=== PATIENT | female | born 1950 | race Caucasian/White ===

== ENCOUNTER 2017-08-11 17:08 | Emergency (ER) | payer MEDICARE, OTHER ==
[2017-08-11] MEDS ORDERED: SODIUM CHLORIDE 0.9% 1,000 ML IV ONE (17:27)
[2017-08-11] MEDS ORDERED: ONDANSETRON 4 MG/2 ML VIAL IVP STA (17:27)
--- NOTE | 2017-08-11 17:29 | ED Physician Documentation ---
PD HPI ABD PAIN - Stated complaint Stated Complaint: VOMITING - Chief complaint Chief Complaint: Abd Pain - History obtained from History obtained from: Patient - History of Present Illness Timing - onset: Other (67-year-old woman with remote gastric bypass, Derek-en-Y presents with 2 days of vomiting without significant pain. She has had decreased bowel movements and is not sure if she has had flatus or not but thinks she has. Her significant other recently had a vomiting type illness. There is no associated fever pain.) Review of Systems Constitutional: denies: Fever, Chills Nose: denies: Rhinorrhea / runny nose, Congestion Cardiac: denies: Chest pain / pressure, Palpitations Respiratory: denies: Dyspnea, Cough PD PAST MEDICAL HISTORY - Past Medical History Cardiovascular: None Respiratory: None Endocrine/Autoimmune: Type 2 diabetes GI: Cholelithiasis : None HEENT: None Psych: Depression, Anxiety Musculoskeletal: Osteoarthritis Derm: None - Past Surgical History Past Surgical History: Yes General: Cholecystectomy Ortho: Knee replacement - Present Medications Home Medications: Ambulatory Orders Medication Instructions Recorded Confirmed Ondansetron Odt [Zofran] 4 mg TL Q6H PRN 11/25/12 11/25/12 Sertraline [Zoloft] 100 mg PO BID 11/25/12 11/25/12 Bupropion HCl [Bupropion HCl Sr] 100 mg PO 08/11/17 Lionel Cit/Mag/D3/Zn/Resident Surgeon/Bennie/Bor 1 each PO 08/11/17 [Citracal-Vit D + Magnesium Tab] Citalopram [CeleXA] 10 mg PO ONCE 08/11/17 08/11/17 Metoclopramide [Reglan] 10 mg PO Q6H PRN #20 tablet 08/11/17 - Allergies Allergies/Adverse Reactions: Allergies Allergy/AdvReac Type Severity Reaction Status Date / Time Sulfa (Sulfonamide Allergy Unknown unknown Verified 11/25/12 18:22 Antibiotics) Penicillins AdvReac Severe Respiratory Verified 08/11/17 17:16 - Social History Does the pt smoke?: No Smoking Status: Never smoker Does the pt drink ETOH?: No Does the pt have substance abuse?: No - Family History Family history: reports: Non contributory - Immunizations Immunizations are current?: Yes PD ED PE NORMAL - Vitals Vital signs reviewed: Yes - General General: Alert and oriented X 3, No acute distress - HEENT HEENT: PERRL, EOMI - Neck Neck: Supple, no meningeal sign, No bony TTP - Cardiac Cardiac: RRR, No murmur - Respiratory Respiratory: No respiratory distress, Clear bilaterally - Abdomen Abdomen: Normal bowel sounds, Soft, Non tender - Neuro Neuro: Alert and oriented X 3, Normal speech - Psych Psych: Normal mood, Normal affect Results - Vitals Vitals: Vital Signs - 24 hr 08/11/17 08/11/17 08/11/17 17:13 18:53 19:27 Temperature 36.9 C Heart Rate 96 95 Respiratory 18 16 16 Rate Blood Pressure 174/109 H 169/88 H O2 Saturation 98 100 08/11/17 20:32 Temperature 36.9 C Heart Rate 101 H Respiratory 15 Rate Blood Pressure 146/91 H O2 Saturation 97 Oxygen O2 Source Room air - EKG (time done) 1743 Rate: Rate (enter#) (93) Rhythm: NSR [place]: Normal Intervals: Normal MA, Prolonged QT QRS: LVH Ischemia: Normal ST segments Computer interpretation: Agree with computer - Labs Labs: Laboratory Tests 08/11/17 08/11/17 08/11/17 18:43 18:43 18:43 WBC 8.5 RBC 4.35 Hgb 13.2 Hct 39.8 MCV 91.5 MCH 30.3 MCHC 33.1 RDW 13.5 Plt Count 349 MPV 7.2 L Neut # 6.7 H Lymph # 1.2 L Bonner # 0.6 Eos # 0.0 Baso # 0.1 Absolute Nucleated RBC 0.00 Nucleated RBC % 0.0 Sodium 132 L Potassium 3.0 L Chloride 93 L Carbon Dioxide 24 Anion Gap 15.0 H BUN 10 Creatinine 0.8 Estimated GFR (MDRD) 72 L Glucose 311 H Calcium 9.5 Total Bilirubin 1.2 H AST 22 ALT 12 Alkaline Phosphatase 172 H Troponin I < 0.04 Total Protein 8.3 H Albumin 4.3 Globulin 4.0 Albumin/Globulin Ratio 1.1 Lipase 12 L - Rads (name of study) CT A/P Radiology: EMP read contemporaneously (No obstruction, some degenerative changes with an ill-defined soft tissue component at L5-S1, fat-containing umbilical hernia.) PD MEDICAL DECISION MAKING - ED course ED course: 67-year-old woman presents with vomiting alone, but no significant abdominal or back pain. She is a history of a Derek-en-Y gastric bypass and questionable flatus by history so obstruction workup was obtained with contrast-enhanced CT and there is no evidence of this. She does have an abnormality at L5-S1 and follow-up with MRI was advised. She had excellent relief here with Reglan. Departure - Departure Disposition: 01 Home, Self Care Clinical Impression: H/O gastric bypass Vomiting Qualifiers: Vomiting type: unspecified Vomiting Intractability: non-intractable Nausea presence: with nausea Qualified Code(s): R11.2 - Nausea with vomiting, unspecified Condition: Good Record reviewed to determine appropriate education?: Yes Instructions: ED Nausea Vomiting Prescriptions: Metoclopramide [Reglan] 10 mg PO Q6H PRN #20 tablet PRN Reason: Nausea / Vomiting Comments: Return if worse or if new symptoms develop. Follow-up with your physician regardless, as discussed there was an abnormality in your back at L5-S1, Talk with your doctor about follow-up MRI there. Your blood pressure was elevated today on check into the emergency department. This does not mean that you have hypertension, it is a common phenomenon to come to the emergency department and have elevated blood pressure. I recommend that you see your primary care physician within the week to have it rechecked when you are feeling better.
[2017-08-11] MEDS ORDERED: IOPAMIDOL-300 100 ML VIAL ONE (17:43)
[2017-08-11] MEDS ORDERED: IOPAMIDOL-300 50 ML VIAL ONE (17:43)
[2017-08-11] MEDS ORDERED: METOCLOPRAMIDE 10 MG/2 ML VIAL IVP STA ×2 (17:47→21:19)
[2017-08-11] MEDS ORDERED: IOPAMIDOL-300 50 ML VIAL PO ONE (18:19)
[2017-08-11] MEDS ORDERED: IOPAMIDOL-300 100 ML VIAL IVP ONE (18:19)
[2017-08-11 18:48] LABS: BASOPHILS # (AUTO) 0.1 10^3/uL (0.0-0.1); BASOPHILS % (AUTO) 0.6 %; HGB - HEMOGLOBIN 13.2 g/dL (12.0-16.0); LYMPHOCYTES # (AUTO) 1.2 10^3/uL (1.5-3.5); LYMPHOCYTES % (AUTO) 13.8 %; MEAN CORPUSCULAR HEMOGLOBIN 30.3 pg (27.0-31.0); MEAN CORPUSCULAR HGB CONC 33.1 g/dL (32.0-36.0); MEAN CORPUSCULAR VOLUME 91.5 fL (81.0-99.0); MEAN PLATELET VOLUME 7.2 fL (7.9-10.8); MONOCYTES # (AUTO) 0.6 10^3/uL (0.0-1.0); NEUTROPHILS # (AUTO) 6.7 10^3/uL (1.5-6.6); NEUTROPHILS % (AUTO) 78.6 %; PLT - PLATELET COUNT 349 10^3/uL (130-450); RED BLOOD COUNT 4.35 10^6/uL (4.20-5.40); RED CELL DISTRIBUTION WIDTH 13.5 % (12.0-15.0); WHITE BLOOD COUNT 8.5 x10^3/uL (4.8-10.8)
[2017-08-11 19:01] LABS: ALBUMIN 4.3 g/dL (3.2-5.5); ALBUMIN/GLOBULIN RATIO 1.1 (1.0-2.2); BILIRUBIN,TOTAL 1.2 mg/dL (0.2-1.0); CALCIUM 9.5 mg/dL (8.5-10.3); CREATININE 0.8 mg/dL (0.4-1.0); TOTAL PROTEIN 8.3 g/dL (6.7-8.2)
[2017-08-11] MEDS ORDERED: POTASSIUM BICARB 25 MEQ TABLET PO STA (19:09)
[2017-08-11 20:32] VITALS: BP 146/91
--- NOTE | 2017-08-11 21:09 | CT Report ---
EXAM: CT ABDOMEN AND PELVIS EXAM DATE: 08/11/2017 08:34 PM. CLINICAL HISTORY: Nausea and vomiting, with remote gastric bypass. COMPARISONS: Previous exam of 11/25/2012. TECHNIQUE: Routine helical CT imaging was performed through the abdomen and pelvis. IV contrast: 100M L ISOVUE 300. Enteric contrast: Yes. Reconstructions: Coronal and sagittal. In accordance with CT protocol optimization, one or more of the following dose reduction techniques w ere utilized for this exam: automated exposure control, adjustment of mA and/or KV based on patient s ize, or use of iterative reconstructive technique. FINDINGS: Lung Bases: Unremarkable. Liver: Normal. No masses. Gallbladder/Bile Ducts: Status post cholecystectomy. Spleen: Normal. Pancreas: Normal. Adrenal Glands: Normal. Kidneys: Normal. No masses or hydronephrosis. Peritoneal Cavity/Bowel: Patient is status post gastric pass surgery. No dilated loops of bowel noted to suggest obstruction. Pelvic Organs: Normal. The bladder and visualized pelvic organs are within normal limits. Vasculature: Calcified atherosclerotic changes seen without evidence of aneurysm. Bones: Mild degenerative changes present. Since previous exam, there has been loss of visualization o f inferior endplate of L5 and superior endplate of S1. There is a possible soft tissue component note d. Other: There is a fat-containing umbilical hernia present. IMPRESSION: 1. Status post gastric bypass surgery, without evidence of bowel loop dilatation to suggest obstructi on. 2. Mild degenerative changes present, with ill-defined soft tissue component at L5/S1. Possible diski tis, less likely malignancy. Clinical correlation is recommended. 3. Fat-containing umbilical hernia. [facility] Referring Provider Line: [phone] SITE ID: [id number]
== END 2017-08-11 21:44 | disposition home or self-care (01) ==
LOC: ED 17:08
DX: R11.2 Nausea with vomiting, unspecified (principal); Z98.84 Bariatric surgery status; R03.0 Elevated blood-pressure reading, without diagnosis of hypertension; E11.9 Type 2 diabetes mellitus without complications; M19.90 Unspecified osteoarthritis, unspecified site
CPT/HCPCS: 36415; 74177; 80053; 83690; 84484; 85025; 93005; 96374; 96376; 99283; A9270; J2765; Q9967